=== PATIENT | female | born 1955 | race Caucasian/White ===

== ENCOUNTER 2025-04-16 13:14 | Day surgery (SDC) | payer OTHER ==
[~2025-04-16] VITALS: Ht 175.3 cm; Wt 91.1 kg
[~2025-04-16 13:14] MED LIST: Glycopyrrolate 0.2 MG/ML 1MLVIAL ONE; Ondansetron HCl 2 MG / ML 2ML Vial ONE; ePHEDrine Sulfate 50 MG/ML 1ML Injection ONE
[2025-04-16 15:30] VITALS: BP 125/80
== END 2025-04-16 15:32 | disposition home or self-care (01) ==
LOC: ORSCSDS 13:14
PROVIDERS: Surgery
PROC: 0DJD8ZZ Inspection of Lower Intestinal Tract, Via Natural or Artificial Opening Endoscopic (ICD-10-PCS; principal; 2025-04-16 14:45)
DX: Z12.11 Encounter for screening for malignant neoplasm of colon (principal); Z86.0100 Personal history of colon polyps, unspecified; E78.2 Mixed hyperlipidemia; Z87.891 Personal history of nicotine dependence; K57.30 Diverticulosis of large intestine without perforation or abscess without bleeding
CPT/HCPCS: J0461; J2003; J2405; J2704; J7120; Q9968